=== PATIENT | female | born 1945 | race Hispanic/Latino ===

== ENCOUNTER → 2022-07-08 | Outpatient (CLI) | payer MEDICARE | END | disposition home or self-care (01) | LOC: RAH 12:51 | PROVIDERS: ATTEND Internal Medicine | DX: I25.3 Aneurysm of heart (principal); R06.02 Shortness of breath | CPT/HCPCS: 93306 ==

== ENCOUNTER → 2024-06-07 | Outpatient (CLI) | payer MEDICARE ==
--- NOTE | 2024-06-07 09:47 | HMCIMG ---
Exam Type: MAMMO SCREENING BILATERAL Clinical Information: REESTABLISH BASELINE Comparison: None Technique: Mammogram with CAD was performed with CC and MLO projections. CAD shows no worrisome regions. FINDINGS: The breasts are heterogeneously dense, which may obscure small masses. No dominant mass or suspicious microcalcification identified. There is no nipple retraction or skin thickening. Benign-appearing calcifications are seen. CAD shows no worrisome regions. IMPRESSION: 1. No mammographic signs of malignancy. 2. Routine follow-up recommended. CATEGORY 2: BENIGN FINDINGS Note: A negative x-ray should not delay biopsy if a dominant or clinically suspicious mass is present, since 8-10% of cancers are not identified by mammography. Dense breasts may obscure an underlying neoplasm.
== END | disposition home or self-care (01) ==
LOC: RAH 08:45
PROVIDERS: ATTEND Family Medicine
DX: Z12.31 Encounter for screening mammogram for malignant neoplasm of breast (principal); R92.323 Mammographic fibroglandular density, bilateral breasts
CPT/HCPCS: 77067

== ENCOUNTER → 2024-11-30 | Outpatient (CLI) | payer MEDICARE ==
[~2024-11-30] MED LIST: IOHEXOL-350 75 ML VIAL IV ONE
--- NOTE | 2024-11-30 13:59 | HMCIMG ---
CLINICAL INFORMATION Abnormal weight loss COMPARISON None. TECHNIQUE Volumetric helical CT images of the abdomen and pelvis with contrast FINDINGS Liver: Normal. Gallbladder: No calcified gallstones or sludge. No wall thickening. Biliary System: Non-dilated. Pancreas: Normal. Spleen: Normal. Adrenals: Normal. Kidneys: Normal bilaterally. Ureters: Normal. Bladder: Normal. Pelvis: No pelvic masses. No abnormal pelvic fluid. Stomach: Normal. Duodenum: Normal. Small Bowel: Normal. Colon: Normal. Appendix: Normal. Lymph Nodes: No lymphadenopathy. Peritoneum: No ascites or free air. Retroperitoneum: Normal. Vessels: Atherosclerotic calcification without aneurysmal dilation. Abdominal Wall: Normal. Bones: No acute osseous findings. Lung Bases: Mild basilar reticulation. Inferior Mediastinum: Normal. IMPRESSION No acute intra-abdominal findings. No evidence of intra-abdominal malignancy. /[place]
== END | disposition home or self-care (01) ==
LOC: RAH 08:33
PROVIDERS: ATTEND Internal Medicine Gastroenterology
DX: R63.4 Abnormal weight loss (principal); I70.90 Unspecified atherosclerosis; J64 Unspecified pneumoconiosis
CPT/HCPCS: 74177; Q9967